=== PATIENT | female | born 1940 | race Caucasian/White ===

== ENCOUNTER → 2021-01-28 13:11 | Outpatient (CLI) | payer MEDICARE, SELFPAY ==
--- NOTE | ~2021-01-28 | MM_ITS ---
EXAMINATION: MM screening asmita BI w henrry HISTORY: Screening mammogram TECHNIQUE: Craniocaudal and mediolateral oblique 3-D tomosynthesis images were obtained and synthetic 2-D images were generated. CAD analysis was submitted and interpreted. COMPARISON: No prior mammogram is available for comparison at this institution. BREAST PARENCHYMAL COMPOSITION: The breasts are almost entirely fatty. FINDINGS: There is no evidence of suspicious mass, calcification, or architectural distortion to sugg est malignancy in either breast. There has been no suspicious interval change. IMPRESSION: 1. No mammographic evidence of malignancy. 2. Recommend routine screening mammography in one year. BI-RADS Category 1: Negative Reviewed, dictated and finalized at location A.
== END ==
PROVIDERS: PCP Family Medicine Adolescent Medicine; Visit Provider Family Medicine Adolescent Medicine
DX: Z12.31 Encounter for screening mammogram for malignant neoplasm of breast (principal)
CPT/HCPCS: 77063; 77067

== ENCOUNTER → 2022-03-24 13:59 | Outpatient (CLI) | payer MEDICARE, SELFPAY ==
--- NOTE | ~2022-03-24 | MM_ITS ---
EXAMINATION: MM screening asmita BI w henrry HISTORY: Screening mammogram TECHNIQUE: Craniocaudal and mediolateral oblique 3-D tomosynthesis images were obtained and synthetic 2-D images were generated. CAD analysis was submitted and interpreted. COMPARISON: 01/28/2021, 10/25/2019, 10/18/2018 bilateral screening mammogram examinations BREAST PARENCHYMAL COMPOSITION: There are scattered areas of fibroglandular density. FINDINGS: There is no evidence of suspicious mass, calcification, or architectural distortion to sugg est malignancy in either breast. There has been no suspicious interval change. IMPRESSION: 1. No mammographic evidence of malignancy. 2. Recommend routine screening mammography in one year. BI-RADS Category 1: Negative Reviewed, dictated and finalized at location A.
== END ==
PROVIDERS: PCP Family Medicine Adolescent Medicine; Visit Provider Family Medicine Adolescent Medicine
DX: Z12.31 Encounter for screening mammogram for malignant neoplasm of breast (principal)
CPT/HCPCS: 77063; 77067

== ENCOUNTER → 2023-04-27 13:13 | Outpatient (CLI) | payer MEDICARE, SELFPAY ==
--- NOTE | ~2023-04-27 | MM_ITS ---
EXAMINATION: MM screening asmita BI w henrry HISTORY: Screening mammogram, family history of breast cancer in her sisters. TECHNIQUE: Craniocaudal and mediolateral oblique 3-D tomosynthesis images were obtained and synthetic 2-D images were generated. CAD analysis was submitted and interpreted. COMPARISON: 03/24/2022, 01/28/2021, 10/25/2019 BREAST PARENCHYMAL COMPOSITION: There are scattered areas of fibroglandular density. FINDINGS: No suspicious mass, calcification, or architectural distortion are identified in either raúl ast to suggest malignancy. There has been no suspicious interval change. IMPRESSION: 1. No mammographic evidence of malignancy. 2. Recommend routine screening mammography while the patient remains in good health. BI-RADS Category 1: Negative Reviewed, dictated and finalized at location A. IMPRESSION: 1. No mammographic evidence of malignancy. 2. Recommend routine screening mammography while the patient remains in good he alth. BI-RADS Category 1: Negative
== END ==
PROVIDERS: PCP Family Medicine Adolescent Medicine; Visit Provider Family Medicine Adolescent Medicine
DX: Z12.31 Encounter for screening mammogram for malignant neoplasm of breast (principal)
CPT/HCPCS: 77063; 77067

== ENCOUNTER → 2023-10-29 10:19 | Outpatient (CLI) | payer MEDICARE, SELFPAY ==
--- NOTE | ~2023-10-29 | XR_ITS ---
EXAMINATION: XR forearm LT 2V DATE: 10/29/2023 10:37 INDICATION: Left forearm pain. TECHNIQUE: 2 views of left forearm were obtained. COMPARISON: Left forearm radiographs 11/24/2011 FINDINGS: Bone alignment is normal. No fracture. 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 No elbow joint effusion. IMPRESSION: 1. No fracture. Reviewed, dictated and finalized at location E. 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 No fracture.
== END ==
PROVIDERS: PCP Family Medicine Adolescent Medicine; Visit Provider Family Medicine Adolescent Medicine
DX: M79.632 Pain in left forearm (principal)
CPT/HCPCS: 73090

== ENCOUNTER 2024-04-29 13:44 | Outpatient (CLI) | payer MEDICARE, SELFPAY ==
--- NOTE | ~2024-04-29 | MM_ITS ---
EXAMINATION: MM screening asmita BI w henrry HISTORY: Screening TECHNIQUE: Craniocaudal and mediolateral oblique 3-D tomosynthesis images were obtained and synthetic 2-D images were generated. CAD analysis was submitted and interpreted. COMPARISON: Comparison to multiple prior studies sequentially, with oldest reviewed study dated 10/15. BREAST PARENCHYMAL COMPOSITION: Not dense: There are scattered areas of fibroglandular density. FINDINGS: There is no evidence of suspicious mass, calcification, or architectural distortion to sugg est malignancy in either breast. There has been no suspicious interval change. IMPRESSION: 1. No mammographic evidence of malignancy. 2. Recommend routine screening mammography in one year. BI-RADS Category 1: Negative Reviewed, dictated and finalized at location B.
== END 2024-04-29 13:45 ==
LOC: MICIMG 13:45
PROVIDERS: PCP Family Medicine Adolescent Medicine; Visit Provider Family Medicine Adolescent Medicine
DX: Z12.31 Encounter for screening mammogram for malignant neoplasm of breast (principal)
CPT/HCPCS: 77063; 77067

== ENCOUNTER 2024-05-06 13:18 | Outpatient (CLI) | payer MEDICARE, SELFPAY ==
--- NOTE | ~2024-05-06 | DEXA_ITS ---
Bone Density Report Name: MAI HO Age: 84 Sex: Female Ethnicity: White Date of : 1940 Indication: postmenopausal; screening for osteoporosis; height loss; Referring Provider: HECTOR MURDOCK Study: Bone densitometry was performed. Exam Date: May 06, 2024 Accession number: [id number] Bone Density: Region BMD T-score Z-score Classification AP Spine(L2, L3, L4) 1.051 -0.3 2.6 Normal Femoral Neck (Left) 0.790 -0.5 1.9 Normal Total Hip (Left) 0.865 -0.6 1.6 Normal Femoral Neck (Right) 0.802 -0.4 2.0 Normal Total Hip (Right) 0.837 -0.9 1.4 Normal Total Hip Mean 0.851 -0.8 1.5 Normal World Health Organization criteria for BMD impression classify patients as: Normal (T-score at or above -1.0), Osteopenia (T-score between -1.0 and -2.5), or Osteoporosis (T-score at or below -2.5). 10-year Fracture Risk: FRAX not reported because: All T-scores for Spine Total, Hip Total, Femoral Neck at or above -1.0 Clinical Information Provided by Patient: Patient maximum height was 64.5 Menopause Age: 53 No regular weight bearing exercise Onset of menses at age 11 Number of children 2 Impression: The patient has normal bone mass. Discussion: BONE DENSITY IS ABOVE THE MINIMUM DESIRABLE LEVEL AT ALL SKELETAL SITES TESTED. This patient?s bone mineral density is above the minimum desirable level (T-score -1.0 or better) at all sites measured. The patient should follow a healthful lifestyle (good nutrition with adequate calcium and vitamin D, and appropriate weight-bearing exercise). Follow-Up: Consider repeating this study in 5 years or sooner if there is some new clinical indication. Reported by: NICOLASA on 05/06/2024 2:00:00 PM. Reviewed, dictated and finalized at location A.
== END 2024-05-06 13:19 | disposition home or self-care (01) ==
PROVIDERS: PCP Family Medicine Adolescent Medicine; Visit Provider Family Medicine Adolescent Medicine
DX: Z78.0 Asymptomatic menopausal state (principal)
CPT/HCPCS: 77080

== ENCOUNTER 2024-10-12 13:51 | Outpatient (CLI) | payer MEDICARE, SELFPAY ==
--- NOTE | ~2024-10-12 | XR_ITS ---
XR hip RT 2V w AP pelvis Ordering provider: Tunde Valerio MD History: . Pain in right groin after a fall . Comparison: None. FINDINGS: BONES: Impacted fracture of the right femoral neck is noted. HIP JOINT SPACES: Normal. SACROILIAC JOINT SPACES/LUMBAR SPINE: The sacroiliac joint spaces are normal. Mild degenerative echevarira es of the visualized lower lumbar spine. PUBIC SYMPHYSIS: Normal. SOFT TISSUES: Normal. IMPRESSION: Impacted fracture of the right femoral neck in the subcapital area. Reviewed, dictated and finalized at location A. UE PLACER
== END 2024-10-12 13:52 | disposition home or self-care (01) ==
LOC: MICIMG 13:52
PROVIDERS: PCP Family Medicine Adolescent Medicine; Visit Provider Family Medicine Adolescent Medicine
DX: S72.011A Unspecified intracapsular fracture of right femur, initial encounter for closed fracture (principal); M25.551 Pain in right hip
CPT/HCPCS: 73502

== ENCOUNTER 2024-10-13 16:58 | Inpatient (IN) | payer MEDICARE, SELFPAY ==
--- NOTE | ~2024-10-13 | XR_ITS ---
XR surgery orthopedic Indication: Percutaneous pinning right femoral neck TECHNIQUE: Fluoroscopy used during Percutaneous pinning right femoral neck performed by [Wm Streeter MD] on 10/14/2024. 1 minute 41 seconds fluoroscopy with 3 fluoroscopic images captured. FINDINGS: Correlate with procedure note. IMPRESSION: Fluoroscopy used during Percutaneous pinning right femoral neck. Reviewed, dictated and finalized at location B. 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
[2024-10-13 16:41] VITALS: BMI 25.2
--- NOTE | 2024-10-13 16:42 | ADMGEN ---
This patient, Delores Tobias, was admitted to Medical Room 253-01. Patient/family oriented to hospital policies and general routines including ID bracelet, bed and alarms, visiting hours, pain management, procedures, bathroom and other care routines, personal items, smoking policy, room service/diet, and visiting hours. Information on how to activate the Rapid Response Team has been discussed. Patient/Family are encouraged to report perceived risks to care and to ask questions if they do not understand what they are told or what they should do.
--- NOTE | 2024-10-13 16:53 | PM.CNOR ---
Assessment and Plan Assessment and plan (1) Nondisplaced fracture of neck of right femur: Code(s): S72.001A - Fracture of unspecified part of neck of right femur, initial encounter for closed fracture Status: Acute Plan Non displaced fracture will benefit from stabilization with percutaneuous pinning (cannulated screws). We discussed the risks, benefits, and alternatives to surgery. Proceed with percutaneous pinning of the right hip femoral neck fracture, Thursday morning. Plan for home discharge with home health care. Appreciate Hospitalist care. History of Present Illness HPI Consult date: 10/14/24 Chief complaint: right hip fx Narrative: Patient complains of acute right hip pain. Fell from standing height. Was managing at home for the first week. Pain increased and x-ray was obtained as an outpatient. The fracture was identified and patient directly admitted for definitive management. No previous hip pain. Comfortable at rest. No numbness, tingling, or other associated symptoms. Review of Systems Review of Systems: Denies loss of consciousness. All systems reviewed & are unremarkable except as noted in HPI and below PMFSH Surgical History Surgical History (Updated 10/23/22 @ 07:21 by Tunde Valerio MD) History of cholecystectomy (2006) 05/11 Family History Family History Sibling Breast cancer Social History Social History (Updated 10/21/21 @ 13:18 by Elisabeth Reid MA) Smoking status: Never smoker Alcohol intake: never Substance use: never Substance use type: does not use Do You Feel Safe in your Home?: Yes Lack of Transportation: No Lack of Food: Never True Current Housing: I Have Housing Concerned About Future Housing: No Difficulty Paying Gas/Electric Bills: No Difficulty Paying for Meds: No Currently Unemployed: No Education: Master's Degree or Higher Difficulty w/ Childcare or Family Care: No Living arrangements: with family Occupation/Education: retired Gender identity (if verbalized by the patient): Female Sexual Orientation (if Verbalized by the Patient): Straight or Heterosexual Spiritual care concerns: No Agree to blood products: Yes Meds Home Medications and Allergies Home Medications ?Medication ?Instructions ?Recorded ?Confirmed ?Type ibuprofen 200 mg tablet 200 mg PO Q6H PRN pain 10/21/21 10/13/24 History vit C 250 mg-vit E 200 unit-zinc 1 cap PO DAILY 10/21/21 10/13/24 History ox 12.5 li-tpnkaw-nzozmx-zeax capsule (ICaps AREDS2) Allergies Allergy/AdvReac Type Severity Reaction Status Date / Time dicyclomine Allergy Severe SWELLING Verified 10/22/23 12:58 AROUND EYES ciprofloxacin Allergy Mild Rash Verified 10/22/23 12:58 Exam Narrative: No lower extremity deformity. Const: General: no acute distress Eyes: General: appearance normal, both eyes and all related structures Resp: Effort & Inspection: normal respiratory effort GI: GI Palp: Yes Soft to palpation and No Guarding due to palpation present (GI) Urinary Catheter: Urinary Catheter: patent and draining and urine clear Skin: General skin exam: no rashes or lesions noted Neuro: Speech: normal speech Other: Wiggles toes well. Capillary refill brisk. Distal light touch sensation intact. Dorsalis pedis pulse palpable. Extrem: Other: No edema. Psych: Mental Status: mental status grossly normal Results Labs Labs: All other labs normal. Quality VTE Prophylaxis VTE prophylaxis: mechanical ordered
[2024-10-13 16:56] VITALS: BP 158/79; PULSE 80; RESP 18; TEMP 36.7; O2SAT 100
[2024-10-13 17:02] VITALS: BMI 25.2
[2024-10-13 21:00] VITALS: BP 118/57; PULSE 91; RESP 18; TEMP 36.7; O2SAT 100
[2024-10-14] VITALS (17 sets, daily range): BP systolic 113–141; BP diastolic 58–74; PULSE 73–82; RESP 10–20; TEMP 35.8–36.7; O2SAT 94–100
[2024-10-14] MEDS: LACTATED RINGERS 1,000 ML 30 ML IV CONT ×3 (00:40→11:38)
[2024-10-14] MEDS: oxyCODONE/ACETAMINOPHEN (*CRX) 5-325 MG TABLET 1 TABLET PO (02:40)
--- NOTE | 2024-10-14 08:47 | PC.NURSE ---
To OR per bed, IV LFA. Report given to Ken.
--- NOTE | 2024-10-14 08:55 | WPDHPUPDATE1 ---
History and Physical Update Update Date/Time: 10/14/24 08:55 History and Physical has been reviewed, including an updated exam of the patient. There are NO changes in the patient's condition. Risks, benefits, and alternatives have been discussed and questions answered. Patient agrees to proceed with procedure.
[2024-10-14] MEDS: TRANEXAMIC ACID 1,000MG/ISO100 1,000 MG/100 ML BAG 200 MG IVPB (09:22)
--- NOTE | 2024-10-14 09:29 | P.PNAN_ITS ---
Anes - Initial Pre Proc Eval Procedure: Operation Date: 10/14/24 10:00 Proposed Procedures p Percutaneous Pinning Right Hip Femoral Neck - Wm Streeter MD Date/Time: 10/14/24 09:29 Surgeon: Wm Streeter MD Pre Op Diagnosis: right hip fx Patient Data Age: 84 Gender: F Height: 1.6 m Weight: 64.5 kg Last Vital Signs Temp 36.0 C L 10/14/24 09:00 Pulse 73 10/14/24 09:00 Resp 14 10/14/24 09:00 BP 141/68 H 10/14/24 09:00 Pulse Ox 98 10/14/24 09:00 O2 Del Method Room Air 10/14/24 09:00 Allergies Allergy/AdvReac Type Severity Reaction Status Date / Time dicyclomine Allergy Severe SWELLING Verified 10/14/24 09:23 AROUND EYES ciprofloxacin Allergy Mild Rash Verified 10/14/24 09:23 Home Medications ?Medication ?Instructions ?Recorded ?Confirmed ?Type ibuprofen 200 mg tablet 200 mg PO Q6H PRN pain 10/21/21 10/13/24 History vit C 250 mg-vit E 200 unit-zinc 1 cap PO DAILY 10/21/21 10/13/24 History ox 12.5 xr-alajtg-sgdueb-zeax capsule (ICaps AREDS2) Patient hx anesthesia problems: none Family hx anesthesia problems: none Results Review: All pre-operative results and documents have been reviewed as part of the pre- operative evaluation. [facility] Surgical History Surgical History History of cholecystectomy (2006) 05/11 Family History Family History Sibling Breast cancer Social History Social History Smoking status: Never smoker Alcohol intake: never Substance use: never Substance use type: does not use Do You Feel Safe in your Home?: Yes Lack of Transportation: No Lack of Food: Never True Current Housing: I Have Housing Concerned About Future Housing: No Difficulty Paying Gas/Electric Bills: No Difficulty Paying for Meds: No Currently Unemployed: No Education: Master's Degree or Higher Difficulty w/ Childcare or Family Care: No Living arrangements: with family Occupation/Education: retired Gender identity (if verbalized by the patient): Female Sexual Orientation (if Verbalized by the Patient): Straight or Heterosexual Spiritual care concerns: No Agree to blood products: Yes Anes - Eval Final PreProcedure Day of Procedure 10/14/24 09:29 Patient weight: normal Heart: regular rate and rhythm Lungs: clear to auscultation Airway: Mallampati scale class II Neurological: alert and oriented Last oral intake: >/= 8 hours ASA classification: II Emergent: no Anesthetic plan: proceed Anesthesia type and monitoring: general LMA and standard monitoring Results Review: All pre-operative results and documents have been reviewed as part of the pre- operative evaluation. Informed Consent: The patient's anesthetic plan and its attendant risks and benefits were discussed with the patient/family/POA. Questions were solicited and answers provided to the satisfaction of the patient/family/POA.
[2024-10-14] MEDS: ceFAZolin 2 GM/D5W 50 ML 2 GM/50 ML BAG IVPB ×2 (09:37→17:30)
[2024-10-14] MEDS: BUPIVACAINE/EPINEPHRINE 0.5% 30 ML VIAL INFILTRATE (10:11)
--- NOTE | 2024-10-14 10:58 | P.OP_ITS ---
Procedure Note - Detailed Date of Procedure 10/14/24 Pre-op Diagnosis Right hip nondisplaced impacted femoral neck fracture Post-op Diagnosis Same Procedure Performed Closed reduction, internal fixation right hip femoral neck fracture with percutaneous screws. Surgeon Wm Streeter MD Anesthesia General Description of Procedure Preoperative antibiotics were given. The patient was brought to the operating room. In general anesthetic was administered. The patient was carefully placed on the fracture table. By planar fluoroscopy was used to confirm maintenance of reduction and treatment of reduction as necessary. The hip was prepped and draped in usual sterile fashion with a sterile curtain. A stab incision was created at the inferior trochanter. The guide pin was placed into the center of the femoral neck inferiorly. Two additional guide pins were placed superiorly were inverted triangle shape. Measurements were taken and the outer cortex was drilled. Three partially-threaded cannulated screws were placed. The crease incisions were closed with interrupted 4-0 Monocryl suture followed by Steri- Strips. The sterile dressing was applied. The patient was transferred to the recovery room in stable condition and extubated. There were no complications. Implants Synthes 7.3 mm cannulated screws. Short thread. 90 mm x1 and 75 mm x 2. Estimated Blood Loss 5 Drains No Packing No Pathology None sent Complications No immediate complications Condition Stable Disposition PACU [facility] Billing Surgery - Charge Forward: Surgery Billing
[2024-10-14] MEDS: fentaNYL CITRATE INJ (*CRX) 100 MCG/2 ML VIAL 25 MCG IV PUSH ×7 (11:04→11:56)
[2024-10-14] MEDS: HYDROmorphone HCL INJ (*CRX) 1 MG/ML SYR IV PUSH (12:07)
--- NOTE | 2024-10-14 12:37 | PC.NURSE ---
Returned from OR per Bed. Report received from Jocelyne TOBIAS.
[2024-10-14] MEDS: SODIUM CHLORIDE 0.9% IV 1,000 ML 125 ML IV CONT (13:04)
[2024-10-14] MEDS: ONDANSETRON INJ 4 MG/2 ML VIAL IV PUSH ×2 (13:49→17:30)
[2024-10-14] MEDS: SENNA/DOCUSATE SODIUM TABLET 2 TAB PO (17:30)
[2024-10-14] MEDS: ASPIRIN 81 MG ENTERIC TABLET PO (21:14)
[2024-10-14] MEDS: ACETAMINOPHEN 500 MG TABLET PO (23:14)
[2024-10-15] MEDS: ceFAZolin 2 GM/D5W 50 ML 2 GM/50 ML BAG IVPB ×2 (01:11→13:02)
[2024-10-15 04:39] VITALS: BP 117/67; PULSE 75; RESP 16; TEMP 36.6; O2SAT 97
--- NOTE | 2024-10-15 05:33 | PC.NURSE ---
Per orders mcgarry catheter d/c at 0530. Time to void by is 1130.
[2024-10-15 08:00] VITALS: PULSE 68; RESP 18; O2SAT 96
[2024-10-15] MEDS: ASPIRIN 81 MG ENTERIC TABLET PO ×2 (08:27→20:50)
[2024-10-15] MEDS: oxyCODONE HCL (*CRX) 5 MG TAB IR PO (08:27)
[2024-10-15 08:39] VITALS: BP 118/58; PULSE 68; RESP 18; TEMP 36.6; O2SAT 96
--- NOTE | 2024-10-15 08:40 | WPDANESPN ---
Anes - Prog Note Post-Op Date/Time: 10/15/24 08:40 Cardiovascular status: normal Respiratory status: normal Airway patency: baseline Mental status: baseline Post-Op hydration status: normal Vital Signs: Last Vital Signs Temp 97.8 F 10/15/24 04:39 Pulse 75 10/15/24 04:39 Resp 16 10/15/24 04:39 BP 117/67 10/15/24 04:39 Pulse Ox 97 10/15/24 04:39 O2 Del Method Room Air 10/14/24 20:00 O2 Flow Rate 8 10/14/24 10:45 Pain Score (VAS): 2 I/O: Intake & Output 10/14/24 10/15/24 10/15/24 23:59 07:59 15:59 Intake Total 1840 50 Output Total 700 750 Balance 1140 -700 Post-procedural complaints: nausea and vomiting (emesis X 1 last evening. pt states resolved by dinnertime and has not had recurrance.) Patient Feedback: Patient satisfied with anesthetic care.
--- NOTE | 2024-10-15 10:34 | P.PNOP_ITS ---
Progress Note: A&P Assessment and Plan (1) Nondisplaced fracture of neck of right femur: Code(s): S72.001A - Fracture of unspecified part of neck of right femur, initial encounter for closed fracture Status: Acute (2) Orthopedic aftercare: Code(s): Z47.89 - Encounter for other orthopedic aftercare Status: Acute Plan Postoperative day 1, status post right hip percutaneous pinning. Pain well controlled. Mobilizing well with therapy. Wound healing well without drainage. No hematoma, no deformity. No warmth or erythema. No edema. Calves nontender, neurovascular status intact, wiggles toes. Progressing appropriately. Likely discharge home tomorrow. ASA for DVT prophylaxis. Her home is well equipped and on 1 level. She has help with her son. Typical recovery and restrictions reviewed. Follow-up in clinic in 4-6 weeks with x- rays. Subjective Subjective Date/Time Seen: 10/15/24 10:34 Objective Data Vital Signs Vital Signs: Vital Signs - 24 hr 10/14/24 10:45 10/14/24 11:00 10/14/24 11:15 Temperature 36.4 C Pulse Rate 82 81 80 Respiratory Rate 16 10 L 10 L Blood Pressure 135/74 123/66 129/69 Pulse Oximetry 99 98 94 Oxygen Delivery Simple Face Mask Room Air Room Air Oxygen Flow Rate 8 10/14/24 11:30 10/14/24 11:45 10/14/24 12:00 Temperature Pulse Rate 79 73 73 Respiratory Rate 10 L 10 L 10 L Blood Pressure 130/73 118/68 138/71 Pulse Oximetry 97 98 98 Oxygen Delivery Room Air Room Air Room Air Oxygen Flow Rate 10/14/24 12:15 10/14/24 12:43 10/14/24 12:59 Temperature 35.8 C L 35.9 C L Pulse Rate 76 75 77 Respiratory Rate 10 L 16 16 Blood Pressure 121/58 L 131/69 122/63 Pulse Oximetry 100 100 98 Oxygen Delivery Room Air Oxygen Flow Rate 10/14/24 13:40 10/14/24 13:54 10/14/24 14:07 Temperature 35.9 C L Pulse Rate 77 Respiratory Rate 16 Blood Pressure 131/64 Pulse Oximetry 95 Oxygen Delivery Room Air Room Air Oxygen Flow Rate 10/14/24 14:47 10/14/24 18:30 10/14/24 20:00 Temperature 36.3 C L 36.4 C L Pulse Rate 73 77 77 Respiratory Rate 16 16 16 Blood Pressure 113/64 139/66 Pulse Oximetry 98 100 100 Oxygen Delivery Room Air Oxygen Flow Rate 10/14/24 21:45 10/15/24 04:39 Temperature 36.5 C 36.6 C Pulse Rate 74 75 Respiratory Rate 16 16 Blood Pressure 133/58 L 117/67 Pulse Oximetry 100 97 Oxygen Delivery Oxygen Flow Rate Intake/Output Intake/Output: Intake & Output 10/12/24 10/13/24 10/14/24 10/15/24 23:59 23:59 23:59 23:59 Intake Total 415 2140 50 Output Total 790 750 Balance 415 1350 -700 Meds/Results Medications: Active Medications Generic Name Dose Route Start Last Admin Trade Name Freq PRN Reason Stop Dose Admin Acetaminophen 500 mg 10/14/24 10:53 10/14/24 23:14 Acetaminophen 500 Mg Tablet PO 500 mg Q6H PRN Administration Pain Rated 1-3 Aspirin 81 mg 10/14/24 21:00 10/15/24 08:27 Aspirin 81 Mg Enteric Tablet PO 81 mg Q12HR SHIRLEY Administration Hydromorphone HCl 1 mg 10/14/24 10:53 Hydromorphone Hcl Inj (*Crx) 1 Mg/Ml Syr IV PUSH Q2H PRN Breakthrough Pain Rated 7-10 or NPO Hydromorphone HCl 0.5 mg 10/14/24 10:53 Hydromorphone Hcl Inj (*Crx) 1 Mg/Ml Syr IV PUSH Q2H PRN Breakthrough Pain Rated 4-6 or NPO Hydroxyzine Pamoate 50 mg 10/14/24 10:53 Hydroxyzine Pamoate 25 Mg Capsule PO Q4H PRN Itching Lactated Ringer's 1,000 mls @ 30 mls/hr 10/14/24 00:00 10/14/24 00:40 Lr - Lactated Ringers Iv IV CONT 30 mls/hr .Q24H SHIRLEY Administration Lactated Ringer's 1,000 mls @ 30 mls/hr 10/14/24 09:30 10/14/24 11:38 Lr - Lactated Ringers Iv IV CONT Infused .Q24H SHIRLEY Infusion Lactated Ringer's 1,000 mls @ 30 mls/hr 10/14/24 09:30 10/14/24 12:32 Lr - Lactated Ringers Iv IV CONT Infused .Q24H SHIRLEY Infusion Sodium Chloride 1,000 mls @ 125 mls/hr 10/14/24 10:55 10/14/24 21:04 Normal Saline Iv IV CONT Infused .Q8H SHIRLEY Infusion Cefazolin Sodium 2 gm in 50 mls @ 100 mls/hr 10/14/24 18:00 10/15/24 01:41 Ancef 2 Gm/D5w 50 Ml IVPB 10/15/24 10:29 Infused Q8H SHIRLEY Infusion Ibuprofen 800 mg in 200 mls @ 400 mls/hr 10/14/24 10:53 Caldolor 800 Mg/200 Ml IVPB Q6H PRN Breakthrough Pain Rated 1-3 or NPO Naloxone HCl 0.1 mg 10/14/24 10:53 Naloxone Hcl 0.4 Mg/Ml Vial IV PUSH Q2M PRN Opiate Reversal Ondansetron HCl 4 mg 10/14/24 10:53 10/14/24 17:30 Ondansetron Inj 4 Mg/2 Ml Vial IV PUSH 4 mg Q4H PRN Administration Nausea And Vomiting Oxycodone HCl 2.5 mg 10/14/24 10:53 Oxycodone Hcl (*Crx) 2.5 Mg Tab Ir PO Q4H PRN Pain Rated 4-6 Oxycodone HCl 5 mg 10/14/24 10:53 10/15/24 08:27 Oxycodone Hcl (*Crx) 5 Mg Tab Ir PO 5 mg Q4H PRN Administration Pain Rated 7-10 Polyethylene Glycol 17 gm 10/15/24 09:00 Polyethylene Glycol 3350 17 Gm Powd.Pack PO QAM SHIRLEY Senna/Docusate Sodium 2 tab 10/14/24 17:00 10/14/24 17:30 Senna/Docusate Sodium Tablet PO 2 tab BID SHRILEY Administration Radiology Results: ITS Impressions Intraoperative X-Ray 10/14/24 11:39 IMPRESSION: Fluoroscopy used during Percutaneous pinning right femoral neck.
[2024-10-15 12:39] VITALS: BP 110/46; PULSE 81; RESP 18; TEMP 37; O2SAT 99
[2024-10-15] MEDS: ACETAMINOPHEN 500 MG TABLET PO ×2 (13:02→23:10)
[2024-10-15 20:00] VITALS: PULSE 81; RESP 18; O2SAT 99
[2024-10-15 21:40] VITALS: BP 119/50; PULSE 84; RESP 16; TEMP 36.5; O2SAT 100
[2024-10-16 05:04] VITALS: BP 157/76; PULSE 80; RESP 16; TEMP 36.4; O2SAT 95
[2024-10-16] MEDS: ACETAMINOPHEN 500 MG TABLET PO (05:12)
[2024-10-16 08:00] VITALS: PULSE 80; RESP 16; O2SAT 95
[2024-10-16] MEDS: ASPIRIN 81 MG ENTERIC TABLET PO (09:11)
--- NOTE | 2024-10-16 09:48 | P.DS_ITS ---
DS: Admitting Diagnosis Discharge Date 10/16/24 Admitting Diagnosis Hip fracture. DS: Discharge Diagnosis Discharge Diagnosis (1) Nondisplaced fracture of neck of right femur: Code(s): S72.001A - Fracture of unspecified part of neck of right femur, initial encounter for closed fracture Status: Acute Assessment and Plan: Postop day 2: Closed reduction, internal fixation right hip femoral neck fracture with percutaneous screws. 10/14/24. Patient tolerated procedure well. No complications. Pain manageable with Tylenol. No numbness or tingling. We had a lengthy discussion regarding postoperative wound care, limitations, expectations, and exercises. Patient shows good understanding. Patient has had initial physical therapy and is tolerating it well. Patient has a lot going on in her personal life with the recent of her . She will have family that can help her. Ortho instructions: Surgery: Closed reduction, internal fixation right hip femoral neck fracture with percutaneous screws. 10/14/24. * D/C home with home health. * Follow up in office in 2-3 weeks with xray. Please call [facility] at for appointment details. * Wound Care: Remove Mepilex dressing at 7 days post op. Remove steristrips at 14 days post op. May shower. No soaking. * PT: Weight bearing as tolerated with a walker. * DVT prophylaxis: Continue low dose aspirin twice daily until next visit in office. Short frequent walks. * Pain medication: Tylenol. Please call office if this is not controlling your pain. DS: Summary Hospital Course Reason for hospitalization: Hip fracture. Hospital Course: Patient tolerated procedure well. Has had initial PT/OT. Status at Discharge Functional status at discharge: uses cane/walker Overall status at discharge: patient is progressing back to baseline Time Spent with Patient Time attestation: Total time spent providing and/or coordinating discharge services: Exam Narrative: 84 y/o normal weight female. Resting com fortably in chair. Wearing compression socks bilaterally. Dressing dry and intact with no drainage. Minimal swelling. No ecchymosis. No erythema. No hematoma. Range of motion limited due to pain. Calf nontender. Thigh nontender. Neurologic status intact. No varicosities. Distal pulses palpable. Discharge Plan Discharge Attending physician on discharge: Wm Streeter Discharging Clinician: Krupa Cleaning Anticipated Discharge Date/Time: 10/16/24 09:44 Patient Disposition: Home Health Service Activity: may shower Diet: as tolerated and regular Wound Care Instructions: follow printed instructions Discharge Instructions: Ortho instructions: Surgery: Closed reduction, internal fixation right hip femoral neck fracture with percutaneous screws. 10/14/24. * D/C home with home health. * Follow up in office in 2-3 weeks with xray. Please call [facility] at for appointment details. * Wound Care: Remove Mepilex dressing at 7 days post op. Remove steristrips at 14 days post op. May shower. No soaking. * PT: Weight bearing as tolerated with a walker. * DVT prophylaxis: Continue low dose aspirin twice daily until next visit in office. Short frequent walks. * Pain medication: Tylenol. Please call office if this is not controlling your pain. Patient Instructions: Antibiotic Form Patient Language: Citizen Of [place] Stand Alone Forms: General Discharge Information Follow-up/Referrals: Krupa Cleaning PA [Physician Press Room Supervisor] - Discharge Medications: New aspirin 81 mg tablet,delayed release (DR/EC) 81 mg PO BID 14 Days Qty: 28 0RF Continued ibuprofen 200 mg tablet 200 mg PO Q6H PRN (Reason: pain) ICaps AREDS2 250 mg-200 unit -12.5 mg-1 mg capsule 1 cap PO DAILY Date of admission: 10/13/24 16:58 Primary Care Provider: Tunde Valerio Admitting Provider: Wm Streeter Attending physician on admission: Wm Streeter Condition: Stable
== END 2024-10-16 14:36 | disposition home health service (06) | DRG 482 ==
PROVIDERS: Admitting Provider Orthopaedic Surgery; PCP Family Medicine Adolescent Medicine; Visit Provider Physician Assistant Surgical
PROC: 0QS634Z Reposition Right Upper Femur with Internal Fixation Device, Percutaneous Approach (ICD-10-PCS; principal; 2024-10-14 10:00)
DX: S72.001A Fracture of unspecified part of neck of right femur, initial encounter for closed fracture (principal); W19.XXXA Unspecified fall, initial encounter; Z90.49 Acquired absence of other specified parts of digestive tract
CPT/HCPCS: 97110; 97116; 97161; 97165; 97530; 97535; 99199; A9270; C1713; C1769; J0690; J1100; J1171; J2003; J2405; J2704; J3010; J7030; J7120

== ENCOUNTER 2025-03-01 12:30 | Outpatient (RCR) | payer MEDICARE, SELFPAY ==
--- NOTE | 2024-12-07 12:41 | OPREHPOC ---
Outpatient Therapy Plan of Care This is a Multidisciplinary Plan of Care that may contain components documented by all disciplines (PT, OT, and ST.) PT Problem 1 PT Problem #1 Knowledge Deficit PT Goal 1 Goal / Goal Update 1. Pt to be IND with issued HEP Target Visit 20 PT Problem 2 PT Problem #2 Pain PT Goal 1 Goal / Goal Update 1. Pt to report R hip pain no greater than 3/10 in the last week. 2. Pt to report 80% return to PLOF. Target Visit 20 PT Problem 3 PT Problem #3 Impaired Gait PT Goal 1 Goal / Goal Update 1. Pt to improve 2 min walk distance from 295ft to 400ft. 2. Pt to return to ambulation on a level surface without the need for a device. Target Visit 20 PT Problem 4 PT Problem #4 Impaired Strength PT Goal 1 Goal / Goal Update 1. pt to improve hip abduction strength to 3+/5 angelo
--- NOTE | 2024-12-07 12:41 | PTOPEVAL1 ---
Assessment and note entered by Bryan Cueva, PT, DPT Evaluation Information Assessment Status Evaluation Diagnosis R hip pinning ICD-10 Condition Codes (PT) Pain in right hip M25.551,Abnormalities of gait and mobility R26.9,Weakness R53.1,Encounter for other orthopedic aftercare Z47.89 Onset 10/14/24 Subjective Information Pt had a R hip pinning on 10/14/24 after a ground level fall resulting in a hip fracture. Pt is ambulating with a walker or a cane, did not use a device prior to her fall. She completed multiple weeks of HH therapy. Pt would like to be able to not use a walker. Reported Pain Level Pain Score 0: Self Report Assessment PT Clinical Summary Pt presents to therapy today for her initial evaluation follow in a R hip pinning. Today she demonstrates decreased active and passive hip motion and decreased hip strength in all planes of motion. She currently requires a walker for ambulation and demonstrates increased knee valgus, decreased gait speed, and L hip drop. Skilled therapy services are indicated to improve hip strength and ROM, improve gait pattern, and to return to PLOF. Plan of Care Interventions Electrical Stimulation,Gait Training,Hot Pack/Cold Pack,Manual Therapy,Neuro Re-education,Patient/ Caregiver Education,Therapeutic Activities, Therapeutic Exercise PT Services Indicated Yes Treatment Frequency and 2-3/wk for 20 visits Duration These treatments will address the objective and functional deficits as defined above. The patient will be advanced safely and appropriately in order for the patient to progress towards his/her prior level of function. Additional exercises will be introduced and as well as a comprehensive home exercise program upon discharge, if needed, ?to ensure carryover of functional gains achieved in the clinic. This treatment plan has been reviewed and agreement upon by the patient.
--- NOTE | 2024-12-27 11:58 | OPREHPOC ---
Outpatient Therapy Plan of Care This is a Multidisciplinary Plan of Care that may contain components documented by all disciplines (PT, OT, and ST.) PT Problem 1 PT Problem #1 Knowledge Deficit PT Goal 1 Goal / Goal Update 1. Pt to be IND with issued HEP 12/27/24: 1. met Target Visit 20 PT Problem 2 PT Problem #2 Pain PT Goal 1 Goal / Goal Update 1. Pt to report R hip pain no greater than 3/10 in the last week. 2. Pt to report 80% return to PLOF. 12/27/24: 1. met 2. progressing Target Visit 20 PT Problem 3 PT Problem #3 Impaired Gait PT Goal 1 Goal / Goal Update 1. Pt to improve 2 min walk distance from 295ft to 400ft. 2. Pt to return to ambulation on a level surface without the need for a device. 12/27/24: 1. progressing to 345ft 2. Progressing to cane Target Visit 20 PT Problem 4 PT Problem #4 Impaired Strength PT Goal 1 Goal / Goal Update 1. pt to improve hip abduction strength to 3+/5 angelo 12/27/24: 1. progressing Target Visit 20
--- NOTE | 2024-12-27 11:58 | PTOPEVAL1 ---
Assessment and note entered by Bryan Cueva, PT, DPT Evaluation Information Assessment Status Progress Diagnosis R hip pinning ICD-10 Condition Codes (PT) Pain in right hip M25.551,Abnormalities of gait and mobility R26.9,Weakness R53.1,Encounter for other orthopedic aftercare Z47.89 Onset 10/14/24 Subjective Information Pt states she is seeing a lot of improvement. States she is seeing a lot of improvement with even the most basic things. States she is able to roll over in bed without pain, put on socks and shoes without difficulty, and is walking with a cane vs walker now. She has been able to do some cooking as well. Reported Pain Level Pain Score 0: Self Report Pain Score 0: Self Report Assessment PT Clinical Summary Pt presents to therapy today for her progress report following 10 visits of skilled therapy following a R hip pinning. Today she demonstrates improved R hip ROM and strength, both are still slightly decreased compared to her L hip. Her gait pattern and speed has progressed as well. She continues to require a cane for ambulation and has decreased walking endurance compared to her baseline. Continuation of skilled therapy services are indicated to improve hip strength and ROM, improve gait pattern, and to return to PLOF. Plan of Care Interventions Electrical Stimulation,Gait Training,Hot Pack/Cold Pack,Manual Therapy,Neuro Re-education,Patient/ Caregiver Education,Therapeutic Activities, Therapeutic Exercise PT Services Indicated Yes Treatment Frequency and 2-3/wk for 20 visits, continue per POC Duration These treatments will address the objective and functional deficits as defined above. The patient will be advanced safely and appropriately in order for the patient to progress towards his/her prior level of function. Additional exercises will be introduced and as well as a comprehensive home exercise program upon discharge, if needed, ?to ensure carryover of functional gains achieved in the clinic. This treatment plan has been reviewed and agreement upon by the patient.
--- NOTE | 2025-01-26 11:07 | OPREHPOC ---
Outpatient Therapy Plan of Care This is a Multidisciplinary Plan of Care that may contain components documented by all disciplines (PT, OT, and ST.) PT Problem 1 PT Problem #1 Knowledge Deficit PT Goal 1 Goal / Goal Update 1. Pt to be IND with issued HEP 12/27/24: 1. met 01/26/25: 1. met Target Visit 20 PT Problem 2 PT Problem #2 Pain PT Goal 1 Goal / Goal Update 1. Pt to report R hip pain no greater than 3/10 in the last week. 2. Pt to report 80% return to PLOF. 12/27/24: 1. met 2. progressing 01/26/25: 1. met 2. progressing, 60% Target Visit 20 PT Problem 3 PT Problem #3 Impaired Gait PT Goal 1 Goal / Goal Update 1. Pt to improve 2 min walk distance from 295ft to 400ft. 2. Pt to return to ambulation on a level surface without the need for a device. 12/27/24: 1. progressing to 345ft 2. Progressing to cane 01/26/25: 1. met, 450ft 2. partially met, increased deviations without cane Target Visit 20 PT Problem 4 PT Problem #4 Impaired Strength PT Goal 1 Goal / Goal Update 1. pt to improve hip abduction strength to 3+/5 angelo 12/27/24: 1. progressing 01/26/25: 1. progressing Target Visit 20
--- NOTE | 2025-01-26 11:07 | PTOPPROG ---
Assessment and note entered by Bryan Cueva, PT, DPT Evaluation Information Assessment Status Progress Diagnosis R hip pinning ICD-10 Condition Codes (PT) Pain in right hip M25.551,Abnormalities of gait and mobility R26.9,Weakness R53.1,Encounter for other orthopedic aftercare Z47.89 Onset 10/14/24 Subjective Information Pt states she is still seeing consistent progress, but states there are still some things that are challenging. She has done some walking without the cane but still has limited endurance with that. States her R hip still feels much weaker. Reports 60% improvement overall. She states walking for distance without her cane seems to be the hardest part. Assessment PT Clinical Summary Pt presents to therapy today for her progress report following 18 visits of skilled therapy following a R hip ORIF on 10/14/24. Today she continues to lack terminal hip extension and angelo hip strength in all planes of motion. Lack of extension ROM and lateral hip strength is increasing a Trendelenburg pattern with ambulation and limiting her tolerance. Gait speed and pain reports continue to progress. She continues to require a cane for ambulation and has decreased walking endurance compared to her baseline. Continuation of skilled therapy services are indicated to improve hip strength and ROM, improve gait pattern, and to return to PLOF. Plan of Care Interventions Electrical Stimulation,Gait Training,Hot Pack/Cold Pack,Manual Therapy,Neuro Re-education,Patient/ Caregiver Education,Therapeutic Activities, Therapeutic Exercise PT Services Indicated Yes Treatment Frequency and 2x/wk for 10 visits Duration These treatments will address the objective and functional deficits as defined above. The patient will be advanced safely and appropriately in order for the patient to progress towards his/her prior level of function. Additional exercises will be introduced and as well as a comprehensive home exercise program upon discharge, if needed, ?to ensure carryover of functional gains achieved in the clinic. This treatment plan has been reviewed and agreement upon by the patient.
--- NOTE | 2025-03-01 13:07 | PTOPDC ---
Assessment and note entered by Mj Rubalcava Evaluation Information Assessment Status Discharge Diagnosis R hip pinning ICD-10 Condition Codes (PT) Pain in right hip M25.551,Abnormalities of gait and mobility R26.9 Onset 10/14/24 Subjective Information Pt. reports she is tremendously better, compared to when she began therapy. She states that she has returned to driving and is doing most all her own IADL's. She states that she is still limited with the distance she can walk, but is regularly walking at the [facility] and trying to increase her distance. At this time she states that she will continue with her HEP and is ready for discharge. Reported Pain Level Pain Score 2,0: Self Report Assessment PT Clinical Summary Mrs. Tobias has met all goals established at the initial evaluation. She is independent with a HEP focused on strength and endurance. At this time encouraged the pt. to continue with her walking regimen and continue exercise at home. She will be discharged from our care at this time. Plan of Care PT Services Indicated No
== END 2025-03-01 13:36 | disposition home or self-care (01) ==
LOC: ANHGOSHPT 12:30
PROVIDERS: PCP Family Medicine Adolescent Medicine; Visit Provider Physician Assistant Surgical
DX: Z98.890 Other specified postprocedural states (principal); Z87.81 Personal history of (healed) traumatic fracture
CPT/HCPCS: 97110; 97112; 97140; 97161; 97530

== ENCOUNTER 2025-05-01 15:25 | Outpatient (CLI) | payer MEDICARE, SELFPAY ==
--- NOTE | ~2025-05-01 | MM_ITS ---
EXAMINATION: MM screening [facility] BI w henrry HISTORY: Screening TECHNIQUE: Craniocaudal and mediolateral oblique 3-D tomosynthesis images were obtained and synthetic 2-D images were generated. CAD analysis was submitted and interpreted. COMPARISON: Comparison to multiple prior studies sequentially, with oldest reviewed study dated 10/18. BREAST PARENCHYMAL COMPOSITION: Not dense: There are scattered areas of fibroglandular density. FINDINGS: There is no evidence of suspicious mass, calcification, or architectural distortion to sugg est malignancy in either breast. There has been no suspicious interval change. IMPRESSION: 1. No mammographic evidence of malignancy. 2. Recommend routine screening mammography in one year. BI-RADS Category 1: Negative Reviewed, dictated and finalized at location B.
== END 2025-05-01 15:26 | disposition home or self-care (01) ==
LOC: MICIMG 15:25
PROVIDERS: PCP Family Medicine Adolescent Medicine; Visit Provider Family Medicine Adolescent Medicine
DX: Z12.31 Encounter for screening mammogram for malignant neoplasm of breast (principal)
CPT/HCPCS: 77063; 77067

== ENCOUNTER 2025-08-11 11:54 | Outpatient (CLI) | payer MEDICARE, SELFPAY ==
--- NOTE | ~2025-08-11 | XR_ITS ---
XR lumbar spine 2-3V Indication: M54.50 - Low back pain, unspecified Comparison: None Findings: There is a levoconvex scoliosis in the upper thoracic spine with a dextroconvex scoliosis of the lower thoracic spine. Moderate osteopenia. Grade 1 retrolisthesis of L1 on L2, L2 on L3 and L3 on L4 with grade 1 anterolisthesis of L4 on L5. Moderate to severe loss of disc height throughout. Soft tissues unremarkable Impression: No acute abnormality. Reviewed, dictated and finalized at location P. SALESPERSON Impression: No acute abnormality.
== END 2025-08-11 11:55 | disposition home or self-care (01) ==
PROVIDERS: PCP Family Medicine Adolescent Medicine; Visit Provider Family Medicine Adolescent Medicine
DX: M54.50 Low back pain, unspecified (principal)
CPT/HCPCS: 72100